=== PATIENT | female | born 1990 | race Caucasian/White ===

== ENCOUNTER 2020-01-23 14:15 | Outpatient (CLI) | payer OTHER, SELFPAY ==
--- NOTE | ~2020-01-23 | US_ITS ---
EXAMINATION: US OB <=14 wk fetus w TV DATE: 01/23/2020 15:17 INDICATION: Spotting and cramping during first trimester . TECHNIQUE: Real-time pelvic ultrasound utilizing both a transvaginal and transabdominal probe was pe rformed. The interpreting radiologist was not present for the study. COMPARISON: CT dated 12/05/2016 FINDINGS: The uterus measures 12.3 x 7.1 x 6.1 cm. There is an intrauterine gestational sac. A yolk sac and fe paz pole are identified. The crown rump length measures 8 mm, which correlates with an estimated gest ational age of 6 weeks and 6 days. heart motion is identified measuring 137-150 beats per minut e (bpm) by M-mode Doppler for mean heart rate of 145 bpm. 2.1 x 1.6 x 1.9 cm heterogeneous iso to sli ghtly hypoechoic region at the left anterior uterine wall. On prior CT there is corresponding region of decreased attenuation which appears contiguous with the endometrium suggesting focal adenomyosis w ith differential including a uterine fibroid. The right ovary measures 6.0 x 5.0 x 4.2 cm. And contains a couple simple anechoic cysts the larger m easuring 4.1 cm in maximal diameter and the smaller measuring 2.0 cm. The left ovary measures 3.1 x 3 .0 x 2.4 cm. Vascular flow identified at both ovaries on color Doppler. There is no free fluid in the pelvis. IMPRESSION: 1. Single living fetus with heart rate of 145 bpm. 2. Gestational age by ultrasound of 6 weeks 6 day(s) +/- 3 day(s) with ultrasound estimated date of delivery ([facility]) of 09/21/2020. 3. 2.1 x 1.6 x 1.9 cm region of heterogeneous isoechoic slightly decreased echogenicity at the left a nterior uterine wall with appearance on earlier CT suggesting this represents adenomyosis with differ ential including less likely a uterine fibroid. 4. A couple simple appearing right ovarian cysts, the larger measuring 4.1 cm. Reviewed, dictated and finalized at location [facility] IMPRESSION: 1. Single living fetus with heart rate of 145 bpm. 2. Gestational age by ultrasound of 6 weeks 6 day(s) +/- 3 day(s) with ultraso und estimated date of delivery ([facility]) of 09/21/2020. 3. 2.1 x 1.6 x 1.9 cm region of heterogeneous isoechoic slightly decreased echo genicity at the left anterior uterine wall with appearance on earlier CT sugges ting this represents adenomyosis with differential including less likely a uter ine fibroid. 4. A couple simple appearing right ovarian cysts, the larger measuring 4.1 cm.
== END 2020-01-23 14:16 | disposition home or self-care (01) ==
PROVIDERS: PCP Internal Medicine; Visit Provider Obstetrics & Gynecology
DX: O36.71X0 Maternal care for viable fetus in abdominal pregnancy, first trimester, not applicable or unspecified (principal); Z3A.01 Less than 8 weeks gestation of pregnancy
CPT/HCPCS: 76801; 76817

== ENCOUNTER 2020-01-27 10:48 | Outpatient (CLI) | payer OTHER, SELFPAY ==
[2020-01-27 11:46] LABS: SARS-CoV-2 Ag Negative (Negative)
== END 2020-01-27 10:49 | disposition home or self-care (01) ==
PROVIDERS: PCP Internal Medicine; Visit Provider Internal Medicine
DX: Z20.828 Contact with and (suspected) exposure to other viral communicable diseases (principal)
CPT/HCPCS: 87426

== ENCOUNTER 2020-02-17 14:50 | Outpatient (CLI) | payer OTHER, SELFPAY ==
[2020-02-17 15:11] LABS: Basophils Absolute Auto 0.03 K/mm3 (0.00-0.10); Basophils Percent Auto 0.3 % (0.0-1.0); Eosinophils Absolute Auto 0.23 K/mm3 (0.02-0.50); Eosinophils Percent Auto 2.2 % (1.0-6.0); Hematocrit 38.1 % (35.0-49.0); Hemoglobin 12.5 g/dL (12.0-15.0); Immature Granulocyte Absolute 0.04 K/mm3 (0.00-0.00); Immature Granulocyte Percent A 0.4 % (0.0-0.0); Lymphocytes Absolute Auto 2.86 K/mm3 (1.10-4.50); Lymphocytes Percent Auto 27.4 % (18.0-42.0); Mean Corpuscular HGB Conc 32.8 g/dL (32.0-36.0); Mean Corpuscular Hemoglobin 30.2 pg (27.0-31.0); Mean Platelet Volume 10.8 fl (9.2-11.8); Monocytes Absolute Auto 0.47 K/mm3 (0.10-0.90); Monocytes Percent Auto 4.5 % (2.0-11.0); Neutrophils Absolute Auto 6.8 K/mm3 (1.7-7.2); Neutrophils Percent Auto 65.2 % (50.0-70.0); Platelet Count Result 226 K/mm3 (150-420); Red Blood Count 4.14 M/mm3 (4.20-5.40); Red Cell Distribution Width 12.7 % (11.6-14.4); White Blood Count 10.5 K/mm3 (4.8-10.8)
[2020-02-17 15:28] LABS: Add Urine Microscopic? NO; Appearance Urine Clear (Clear); Bilirubin Urine Negative (Negative); Blood Urine Negative (Negative); Color Urine Yellow (Yellow); Glucose Urine UA Negative (Negative); Ketones Urine Negative (Negative); Leukocyte Esterase Ur Negative (Negative); Nitrate Urine Negative (Negative); Protein Urine Negative (Negative); Specific Grav Ur >= 1.030 (1.010-1.020); Urobilinogen Urine 0.2 mg/dL (0.2-1.0); pH Urine 5.5 (5.0-8.0)
[2020-02-17 17:00] LABS: HIV 1 P24 AG Negative (Negative); HIV 1/2 AB Negative (Negative)
[2020-02-19 14:06] LABS: RPR Screen Non-Reactive (Non-Reactive)
[2020-02-21 04:39] LABS: Hepatitis B Surface Antigen Nonreactive (Nonreactive); Hepatitis C Signal to Cutoff 0.01 ratio (<1.00); Hepatitis C Virus Antibody Nonreactive (Nonreactive)
[2020-02-21 11:58] LABS: Vitamin D 25 Hydroxy 31 ng/mL (30-100)
[2020-02-22 16:16] LABS: Rubella IgG Antibody 3.51 Index
[2020-02-25 18:26] LABS: Hematocrit 39.7 % (35.0-45.0); Hemoglobin 12.9 g/dL (11.7-15.5); MCH 31.1 pg (27.0-33.0); MCV 95.5 FL (80.0-100.0); RDW 14.8 % (11.0-15.0); Red Blood Cell Count 4.16 Mill/uL (3.80-5.10)
== END 2020-02-17 14:51 | disposition home or self-care (01) ==
LOC: CHSLAB 14:52
PROVIDERS: PCP Internal Medicine; Visit Provider Obstetrics & Gynecology
DX: Z34.90 Encounter for supervision of normal pregnancy, unspecified, unspecified trimester (principal)
CPT/HCPCS: 36415; 81003; 82306; 83021; 84443; 85025; 86592; 86703; 86762; 86787; 86850; 86900; 86901; 87086

== ENCOUNTER 2020-03-04 20:25 | Emergency (ER) | payer OTHER, SELFPAY ==
[2020-03-04 20:34] VITALS: BP 141/83; PULSE 82; RESP 18; TEMP 36.3; O2SAT 100
[2020-03-04 21:34] LABS: Basophils Percent Auto 0.1 % (0.2-1.2); Eosinophils Absolute Auto 0.1 K/mm3 (0-0.3); Eosinophils Percent Auto 1.2 % (0-4.4); Hematocrit 40.5 % (37.0-47.0); Hemoglobin 13.7 g/dL (12.0-15.0); Immature Granulocyte Absolute 0.04 K/mm3 (0.00-0.031); Immature Granulocyte Percent A 0.4 % (0-0.5); Lymphocytes Absolute Auto 3.21 K/mm3 (0.9-3.2); Lymphocytes Percent Auto 28.3 % (18.3-44.2); Mean Corpuscular HGB Conc 33.8 g/dl (32-36); Mean Corpuscular Hemoglobin 31.1 pg (26-34); Mean Corpuscular Volume 91.8 fl (80-100); Mean Platelet Volume 10.5 fl (7.4-10.4); Monocytes Absolute Auto 0.5 K/mm3 (0.1-0.6); Monocytes Percent Auto 4.3 % (2.6-8.5); Neutrophils Absolute Auto 7.5 K/mm3 (1.3-6.7); Neutrophils Percent Auto 65.7 % (45.5-73.1); Platelet Count Result 237 k/mm3 (150-375); Red Blood Count 4.41 M/mm3 (4.2-5.4); Red Cell Distribution Width 12.7 % (11.5-14.5); White Blood Count 11.4 K/mm3 (4.5-10.0)
[2020-03-04 21:38] LABS: Add Urine Microscopic? YES; Appearance Urine Clear (Clear); Bacteria Urine Trace /hpf; Bilirubin Urine Negative (Negative); Blood Urine Negative (Negative); Color Urine Yellow (Yellow); Glucose Urine UA Negative (Negative); Ketones Urine 1+ mg/dL (Negative); Leukocyte Esterase Ur Negative LEU/UL (Negative); Mucus Urine Rare /lpf; Nitrate Urine Negative (Negative); Protein Urine Negative (Negative); RBC Urine 0-2 /hpf (0-2); Specific Grav Ur 1.027 (1.001-1.035); Squamous Epithelial Cell Urine Occasional /hpf (Few); Urobilinogen Urine Negative mg/dL (<2.0); WBC Urine 0-3 /hpf
[2020-03-04 21:46] LABS: Alanine Aminotransferase 13 U/L (4-35); Alkaline Phosphatase 52 U/L (38-126); Anion Gap 6 mmol/L (8-16); Aspartate Amino Transferase 23 U/L (14-36); Bilirubin,Total 0.7 mg/dL (0.2-1.3); Blood Urea Nitrogen 14 mg/dL (7-17); Calcium 9.2 mg/dL (8.4-10.2); Carbon Dioxide 29 mmol/L (22-30); Chloride 98 mmol/L (98-107); Estimated CRCL calculation 153 ml/min; Estimated Glomerular Filt Rate > 60; Glucose 88 mg/dL (65-105); Potassium 3.8 mmol/L (3.4-5.0); Sodium 133 mmol/L (137-145)
[2020-03-04] MEDS: SODIUM CHLORIDE 0.9% IV 1,000 ML 999 ML IV CONT (22:03)
[2020-03-04 22:46] VITALS: BP 119/71; PULSE 67; RESP 18; O2SAT 97
--- NOTE | 2020-03-04 23:44 | ED.GENADULT ---
HPI - General Adult General Chief complaint: Unspecified Stated complaint: Headache, shortness of breath Time Seen by Provider: 03/04/20 20:48 History of Present Illness HPI narrative: Patient is a 29-year-old female who is 12 weeks and 6 days gestation that presents ER with headache. Ongoing for several days. She is. No thunderclap. No numbness or tingling or focal weakness. No slurred speech. Has taken Tylenol with no relief. Reports her blood pressure started becoming elevated at home into the 150s systolic so she contacted her OB who recommended she come here for evaluation. Patient reports her blood pressures typically in the 1 teens. Related Data Allergies Allergy/AdvReac Type Severity Reaction Status Date / Time No Known Allergies Allergy Verified 03/04/20 20:26 Review of Systems Review of Systems: All systems reviewed & are unremarkable except as noted in HPI and below Constitutional: Constitutional: Denies body ache(s), Denies fever(s) and Reports headache(s) ENT: Denies nasal congestion and Denies sore throat Gastrointestinal: Gastrointestinal: Denies abdominal pain, Denies nausea and Denies vomiting Genitourinary: Genitourinary: Denies abnormal vaginal bleeding and Denies vaginal discharge PMFSH Past Medical History Medical History (Updated 03/04/20 @ 23:47 by Favian Hanna MD) Umbilical hernia Vaginal delivery x2 Family History Family History Mother Hypertension Social History Social History Smoking status: Never smoker Alcohol intake: current Exam Narrative: Exam Narrative: GENERAL: Well-appearing, well-nourished, and in no acute distress. HEAD: Normocephalic, atraumatic. CHEST: Clear to auscultation. No respiratory distress. HEART: Regular rate and rhythm. Normal peripheral pulses. ABDOMEN: Soft, nontender, nondistended. EXTREMITIES: Normal range of motion. No edema. SKIN: Warm, dry, no rash. NEURO: Alert and oriented x3. PSYCH: Normal mood and affect. Course Course Emergency Course: Blood work unremarkable. Blood pressure normalized. Follow-up with OB as needed. Vital Signs Vital signs: Vital Signs Temperature 97.4 F L 03/04/20 20:34 Pulse Rate 82 12/30/20 20:34 Respiratory Rate 18 03/04/20 20:34 Blood Pressure 141/83 H 03/04/20 20:34 Pulse Oximetry 100 03/04/20 20:34 Temperature 97.4 F L 03/04/20 20:34 Pulse Rate 67 03/04/20 22:46 Respiratory Rate 18 03/04/20 22:46 Blood Pressure 119/71 03/04/20 22:46 Pulse Oximetry 97 03/04/20 22:46 Medical Decision Making Vital Signs Vital Signs: Vital Signs Temperature 97.4 F L 03/04/20 20:34 Pulse Rate 82 03/04/20 20:34 Respiratory Rate 18 03/04/20 20:34 Blood Pressure 141/83 H 03/04/20 20:34 Pulse Oximetry 100 03/04/20 20:34 Temperature 97.4 F L 03/04/20 20:34 Pulse Rate 67 03/04/20 22:46 Respiratory Rate 18 03/04/20 22:46 Blood Pressure 119/71 03/04/20 22:46 Pulse Oximetry 97 03/04/20 22:46 Lab Data Result diagrams: 03/04/20 21:26 03/04/20 21:26 Labs: Lab Results 03/04/20 03/04/20 03/04/20 Range/Units 21:26 21:26 21:28 WBC 11.4 H (4.5-10.0) K/mm3 RBC 4.41 (4.2-5.4) M/mm3 Hgb 13.7 (12.0-15.0) g/dL Hct 40.5 (37.0-47.0) % MCV 91.8 (80-100) fl MCH 31.1 (26-34) pg MCHC 33.8 (32-36) g/dl RDW 12.7 (11.5-14.5) % Plt Count 237 (150-375) k/mm3 MPV 10.5 H (7.4-10.4) fl Immature Gran % (Auto) 0.4 (0-0.5) % Neut % (Auto) 65.7 (45.5-73.1) % Lymph % (Auto) 28.3 (18.3-44.2) % [place] % (Auto) 4.3 (2.6-8.5) % Eos % (Auto) 1.2 (0-4.4) % Baso % (Auto) 0.1 L (0.2-1.2) % Lymph # (Auto) 3.21 H (0.9-3.2) K/mm3 [place] # (Auto) 0.5 (0.1-0.6) K/mm3 Eos # (Auto) 0.1 (0-0.3) K/mm3 Baso # (Auto) 0.0 (0.0-0.1) K/mm3 Abs Immat
[2020-03-05 00:18] VITALS: BP 110/57; PULSE 74; RESP 18; O2SAT 99
== END 2020-03-05 00:32 | disposition home or self-care (01) ==
PROVIDERS: Emergency Provider Emergency Medicine; PCP Internal Medicine
DX: O26.891 Other specified pregnancy related conditions, first trimester (principal); R51.9 Headache, unspecified; Z3A.12 12 weeks gestation of pregnancy
CPT/HCPCS: 36415; 80048; 80076; 81001; 85025; 96360; 96361; 99283; J7030

== ENCOUNTER 2020-03-05 10:28 | Outpatient (CLI) | payer OTHER, SELFPAY ==
[2020-03-05 11:13] LABS: SARS-CoV-2 Ag Negative (Negative)
== END 2020-03-05 10:29 | disposition home or self-care (01) ==
LOC: CHSLAB 10:31
PROVIDERS: PCP Internal Medicine; Visit Provider Internal Medicine
DX: Z20.828 Contact with and (suspected) exposure to other viral communicable diseases (principal)
CPT/HCPCS: 87426

== ENCOUNTER 2020-03-19 11:09 | Outpatient (CLI) | payer OTHER, SELFPAY ==
--- NOTE | 2020-03-19 12:17 | ECG_ITS ---
Measurements Intervals [place] Rate: 61 P: 66 ME: 116 QRS: 78 QRSD: 90 T: 53 QT: 448 QTc: 452 Interpretive Statements SINUS RHYTHM WITH SHORT ME INTERVAL POSSIBLE LEFT ATRIAL ENLARGEMENT INCOMPLETE RIGHT BUNDLE BRANCH BLOCK BORDERLINE ECG Electronically Signed On 03-19-2020 12:49:44 PLATE FILLER by Hans Garcia D.O.
== END 2020-03-19 11:10 | disposition home or self-care (01) ==
PROVIDERS: PCP Internal Medicine; Visit Provider Obstetrics & Gynecology
DX: R00.0 Tachycardia, unspecified (principal); Z82.49 Family history of ischemic heart disease and other diseases of the circulatory system; I45.10 Unspecified right bundle-branch block
CPT/HCPCS: 93005

== ENCOUNTER 2020-03-23 12:58 | Outpatient (CLI) | payer OTHER, SELFPAY ==
--- NOTE | 2020-03-25 12:43 | WPDHOLTEREM ---
Holter/Event Monitor Holter/Event Monitor Date of procedure: 03/23/20 Procedure Type: 24 hour holter monitor Indications: Palpitations Conclusion: 1. 24 hour holter monitor on 04/02/20. 2. Underlying rhythm is sinus rhythm. HR range 51-143 bpm; average HR 82 bpm. 3. There are 10 premature supraventricular complexes. No supraventricular tachycardia. 4. There are 8 premature ventricular complexes. No ventricular tachycardia. 5. No sinoatrial or atrioventricular blocks. No significant pauses greater than 2 seconds. 6. No symptoms available for correlation.
== END 2020-03-23 12:59 | disposition home or self-care (01) ==
LOC: ANHCARD 12:58
PROVIDERS: PCP Internal Medicine; Visit Provider Obstetrics & Gynecology
DX: R00.0 Tachycardia, unspecified (principal); Z82.49 Family history of ischemic heart disease and other diseases of the circulatory system
CPT/HCPCS: 93225; 93226

== ENCOUNTER 2020-05-28 09:06 | Outpatient (CLI) | payer OTHER, SELFPAY ==
[2020-05-28 10:23] LABS: Basophils Absolute Auto 0.01 K/mm3 (0.00-0.10); Basophils Percent Auto 0.1 % (0.0-1.0); Eosinophils Absolute Auto 0.14 K/mm3 (0.02-0.50); Eosinophils Percent Auto 1.4 % (1.0-6.0); Hematocrit 36.6 % (35.0-49.0); Hemoglobin 12.2 g/dL (12.0-15.0); Immature Granulocyte Absolute 0.05 K/mm3 (0.00-0.00); Immature Granulocyte Percent A 0.5 % (0.0-0.0); Lymphocytes Absolute Auto 1.96 K/mm3 (1.10-4.50); Mean Corpuscular HGB Conc 33.3 g/dL (32.0-36.0); Mean Corpuscular Hemoglobin 31.4 pg (27.0-31.0); Mean Corpuscular Volume 94.1 fL (78.0-102.0); Mean Platelet Volume 10.8 fl (9.2-11.8); Monocytes Absolute Auto 0.44 K/mm3 (0.10-0.90); Monocytes Percent Auto 4.5 % (2.0-11.0); Neutrophils Absolute Auto 7.2 K/mm3 (1.7-7.2); Neutrophils Percent Auto 73.5 % (50.0-70.0); Platelet Count Result 217 K/mm3 (150-420); Red Blood Count 3.89 M/mm3 (4.20-5.40); Red Cell Distribution Width 12.6 % (11.6-14.4); White Blood Count 9.8 K/mm3 (4.8-10.8)
[2020-05-28 10:59] LABS: Glucose 1 Hour PP 50gm Dose 83 mg/dL (70-130)
== END 2020-05-28 09:07 | disposition home or self-care (01) ==
LOC: CHSLAB 09:08
PROVIDERS: PCP Internal Medicine; Visit Provider Obstetrics & Gynecology
DX: Z34.90 Encounter for supervision of normal pregnancy, unspecified, unspecified trimester (principal)
CPT/HCPCS: 36415; 82947; 85025

== ENCOUNTER 2020-06-02 16:31 | Outpatient (CLI) | payer OTHER, SELFPAY ==
[2020-06-02 17:36] LABS: SARS-CoV-2 RNA PCR Negative (Negative)
== END 2020-06-02 16:32 | disposition home or self-care (01) ==
LOC: CHSLAB 16:33
PROVIDERS: PCP Internal Medicine; Visit Provider Internal Medicine
DX: Z20.822 Contact with and (suspected) exposure to COVID-19 (principal)
CPT/HCPCS: C9803; U0003; U0005

== ENCOUNTER 2020-07-20 14:48 | Outpatient (CLI) | payer OTHER, SELFPAY ==
[2020-07-20 15:06] LABS: Basophils Absolute Auto 0.02 K/mm3 (0.00-0.10); Basophils Percent Auto 0.2 % (0.0-1.0); Eosinophils Absolute Auto 0.07 K/mm3 (0.02-0.50); Eosinophils Percent Auto 0.7 % (1.0-6.0); Hematocrit 37.7 % (35.0-49.0); Hemoglobin 12.6 g/dL (12.0-15.0); Immature Granulocyte Absolute 0.06 K/mm3 (0.00-0.00); Immature Granulocyte Percent A 0.6 % (0.0-0.0); Lymphocytes Absolute Auto 1.92 K/mm3 (1.10-4.50); Lymphocytes Percent Auto 19.6 % (18.0-42.0); Mean Corpuscular HGB Conc 33.4 g/dL (32.0-36.0); Mean Corpuscular Hemoglobin 30.5 pg (27.0-31.0); Mean Corpuscular Volume 91.3 fL (78.0-102.0); Mean Platelet Volume 11.1 fl (9.2-11.8); Monocytes Absolute Auto 0.34 K/mm3 (0.10-0.90); Monocytes Percent Auto 3.5 % (2.0-11.0); Neutrophils Absolute Auto 7.4 K/mm3 (1.7-7.2); Neutrophils Percent Auto 75.4 % (50.0-70.0); Platelet Count Result 231 K/mm3 (150-420); Red Blood Count 4.13 M/mm3 (4.20-5.40); Red Cell Distribution Width 12.1 % (11.6-14.4); White Blood Count 9.8 K/mm3 (4.8-10.8)
[2020-07-20 16:10] LABS: HIV 1 P24 AG Negative (Negative); HIV 1/2 AB Negative (Negative)
[2020-07-22 19:49] LABS: RPR Screen Non-Reactive (Non-Reactive)
== END 2020-07-20 14:49 | disposition home or self-care (01) ==
LOC: CHSLAB 14:51
PROVIDERS: PCP Internal Medicine; Visit Provider Obstetrics & Gynecology
DX: Z34.90 Encounter for supervision of normal pregnancy, unspecified, unspecified trimester (principal)
CPT/HCPCS: 36415; 85025; 86592; 86703

== ENCOUNTER 2020-08-31 14:48 | Inpatient (IN) | payer OTHER, SELFPAY ==
[2020-08-31] VITALS (111 sets, daily range): BP systolic 76–143; BP diastolic 50–88; PULSE 53–142; TEMP 36.6; O2SAT 87–100; BMI 32.7
--- NOTE | 2020-08-31 15:52 | LDADM ---
This patient, Cynthia Omalley, was admitted to Labor/Delivery/Recovery 105 on 08/31/20 at 14:48. Plans for labor, pain management and were discussed with patient. Patient/family oriented to hospital policies and general routines including ID bracelet, bed and alarms, visiting hours, pain management, procedures, bathroom and other care routines, personal items, smoking policy, room service/diet and guest tray routines, infant security routines, and visiting hours. Patient/Family are encouraged to report perceived risks to care and to ask questions if they do not understand what they are told or what they should do. See OBIX for further documentation.
[2020-08-31 16:11] LABS: Basophils Percent Auto 0.2 % (0.2-1.2); Eosinophils Absolute Auto 0.1 K/mm3 (0-0.3); Eosinophils Percent Auto 0.9 % (0-4.4); Immature Granulocyte Absolute 0.05 K/mm3 (0.00-0.031); Immature Granulocyte Percent A 0.4 % (0-0.5); Lymphocytes Absolute Auto 2.19 K/mm3 (0.9-3.2); Mean Corpuscular HGB Conc 32.4 g/dl (32-36); Mean Corpuscular Volume 89.4 fl (80-100); Mean Platelet Volume 11.7 fl (7.4-10.4); Monocytes Absolute Auto 0.6 K/mm3 (0.1-0.6); Monocytes Percent Auto 5.3 % (2.6-8.5); Neutrophils Absolute Auto 9.1 K/mm3 (1.3-6.7); Neutrophils Percent Auto 75.2 % (45.5-73.1); Platelet Count Result 196 k/mm3 (150-375); Red Blood Count 4.14 M/mm3 (4.2-5.4); Red Cell Distribution Width 13.3 % (11.5-14.5); White Blood Count 12.2 K/mm3 (4.5-10.0)
--- NOTE | 2020-08-31 17:14 | P.PNAN_ITS ---
Anes - Eval Pre Procedure Procedure: Labor epidural Date/Time: 08/31/20 17:14 Surgeon: Uche Preop Diagnosis: pain during labor Pre Op Diagnosis: Contractions Patient Data Age: 29 Gender: F Height: 1.68 m Weight: 92 kg Last Vital Signs Pulse 84 08/31/20 16:00 BP 118/88 08/31/20 16:00 Allergies Allergy/AdvReac Type Severity Reaction Status Date / Time No Known Allergies Allergy Verified 08/31/20 14:05 Home Medications Medication Instructions Recorded Confirmed Type vitamin no.[id number] 1 cap PO DAILY #90 cap 01/23/20 08/31/20 Rx 28 mg iron-1 mg-200 mg capsule Laboratory Tests 08/31/20 08/31/20 15:57 15:57 WBC 12.2 K/mm3 H K/mm3 (4.5-10.0) RBC 4.14 M/mm3 L M/mm3 (4.2-5.4) Hgb 12.0 g/dL g/dL (12.0-15.0) Hct 37.0 % % (37.0-47.0) MCV 89.4 fl fl (80-100) MCH 29.0 pg pg (26-34) MCHC 32.4 g/dl g/dl (32-36) RDW 13.3 % % (11.5-14.5) Plt Count 196 k/mm3 k/mm3 (150-375) MPV 11.7 fl H fl (7.4-10.4) Immature Gran % (Auto) 0.4 % % (0-0.5) Neut % (Auto) 75.2 % H % (45.5-73.1) Lymph % (Auto) 18.0 % L % (18.3-44.2) [place] % (Auto) 5.3 % % (2.6-8.5) Eos % (Auto) 0.9 % % (0-4.4) Baso % (Auto) 0.2 % % (0.2-1.2) Lymph # (Auto) 2.19 K/mm3 K/mm3 (0.9-3.2) [place] # (Auto) 0.6 K/mm3 K/mm3 (0.1-0.6) Eos # (Auto) 0.1 K/mm3 K/mm3 (0-0.3) Baso # (Auto) 0.0 K/mm3 K/mm3 (0.0-0.1) Abs Immat Gran (auto) 0.05 K/mm3 H K/mm3 (0.00-0.031) Absolute Neuts (auto) 9.1 K/mm3 H K/mm3 (1.3-6.7) Absolute Nucleated RBC 0.0 K/mm3 K/mm3 (0.0-0.012) Nucleated RBC % 0.0 % % (0.0-0.2) RPR Pending Patient hx anesthesia problems: none Family hx anesthesia problems: none PMFSH Past Medical History Medical History Umbilical hernia Vaginal delivery x2 Family History Family History Mother Hypertension Social History Social History Smoking status: Never smoker Alcohol intake: current Substance use: unknown Gender identity (if verbalized by the patient): Female Spiritual care concerns: No Exam Day of Procedure 08/31/20 17:14
[2020-08-31] MEDS: LACTATED RINGERS 1,000 ML 125 ML IV CONT ×2 (17:45→19:44)
[2020-08-31] MEDS: OXYTOCIN 30 UNITS/NS 500 ML 30 UNITS/500 ML BAG IV CONT (22:07)
[2020-09-01] VITALS (16 sets, daily range): BP systolic 98–130; BP diastolic 49–90; PULSE 64–126; RESP 16–18; TEMP 36.3–36.8; O2SAT 99–100
--- NOTE | 2020-09-01 00:23 | PM.IMHP ---
H&P: HPI History of Present Illness Date/Time: 09/01/20 00:23 Patient at 38 4/7 weeks admitted for labor. PNC uncomplicated. Labs reviewed. GBS negative. Chief Complaint: Labor Review of Systems Review of Systems: All systems reviewed & are unremarkable except as noted in HPI and below Constitutional: Constitutional: Reports no additional constitutional complaints and Denies headache(s) Eyes: Eyes: Denies spots in vision ENT: Reports system reviewed and no additional complaints, except as documented and Denies headache(s) Cardiovascular: Cardiovascular: Denies chest pain and Denies dyspnea Respiratory: Respiratory: Denies dyspnea Gastrointestinal: Gastrointestinal: Reports no additional gastrointestinal complaints Genitourinary: Genitourinary: Reports amenorrhea Musculoskeletal: Musculoskeletal: Reports no additional musculoskeletal complaints Integumentary/Breasts: Skin/Breast: Denies breast mass and Denies rash Neurologic: Denies headache(s) Psychiatric: Psychiatric: Reports no additional psychiatric complaints PMFSH Past Medical History Medical History Umbilical hernia Vaginal delivery x2 Family History Family History Mother Hypertension Social History Social History Smoking status: Never smoker Alcohol intake: current Substance use: unknown Gender identity (if verbalized by the patient): Female Spiritual care concerns: No Meds Home Medications and Allergies Home Medications Medication Instructions Recorded Confirmed Type vitamin no.[id number] 1 cap PO DAILY #90 cap 01/23/20 08/31/20 Rx 28 mg iron-1 mg-200 mg capsule Allergies Allergy/AdvReac Type Severity Reaction Status Date / Time No Known Allergies Allergy Verified 08/31/20 14:05 Vital Signs Vital Signs - 24 hr 08/31/20 15:05 08/31/20 15:15 08/31/20 15:30 Temperature Pulse Rate 96 96 97 Blood Pressure 133/86 132/86 118/76 Pulse Oximetry 08/31/20 15:46 08/31/20 16:00 08/31/20 18:01 Temperature Pulse Rate 91 84 107 H Blood Pressure 117/67 118/88 127/76 Pulse Oximetry 08/31/20 18:16 08/31/20 18:31 08/31/20 18:40 Temperature Pulse Rate 68 71 Blood Pressure 111/60 123/63 Pulse Oximetry 100 08/31/20 18:42 08/31/20 18:43 08/31/20 18:45 Temperature Pulse Rate 83 89 99 Blood Pressure 143/71 H 124/75 141/80 H Pulse Oximetry 100 08/31/20 18:48 08/31/20 18:50 08/31/20 18:53 Temperature Pulse Rate 80 90 79 Blood Pressure 111/71 135/83 130/85 Pulse Oximetry 100 99 08/31/20 18:55 08/31/20 18:58 08/31/20 19:00 Temperature Pulse Rate 105 H 100 99 Blood Pressure 129/76 119/74 110/75 Pulse Oximetry 100 08/31/20 19:03 08/31/20 19:05 08/31/20 19:08 Temperature Pulse Rate 88 75 86 Blood Pressure 91/69 L 118/66 128/67 Pulse Oximetry 100 100 08/31/20 19:10 08/31/20 19:13 08/31/20 19:15 Temperature Pulse Rate 99 82 90 Blood Pressure 120/79 128/76 121/69 Pulse Oximetry 100 08/31/20 19:18 08/31/20 19:21 08/31/20 19:23 Temperature Pulse Rate 70 81 85 Blood Pressure 121/69 120/62 120/66 Pulse Oximetry 100 100 08/31/20 19:25 08/31/20 19:28 08/31/20 19:30 Temperature Pulse Rate 70 76 103 H Blood Pressure 122/63 119/62 124/71 Pulse Oximetry 100 08/31/20 19:33 08/31/20 19:36 08/31/20 19:38 Temperature Pulse Rate 83 77 69 Blood Pressure 119/68 113/64 118/68 Pulse Oximetry 100 100 08/31/20 19:40 08/31/20 19:41 08/31/20 19:44 Temperature Pulse Rate 99 Blood Pressure 111/69 Pulse Oximetry 100 100 08/31/20 19:46 08/31/20 19:49 08/31/20 19:54 Temperature Pulse Rate 96 Blood Pressure 120/54 L Pulse Oximetry 98 100 08/31/20 19:57 08/31/20 20:01 08/31/20 20:02 Temperature Pulse Rate [address]
--- NOTE | 2020-09-01 00:26 | PM.OBPRVD ---
OB - Delivery Note Procedure Delivery date: 09/01/20 Procedure: Spontaneous vaginal delivery Intrapartal events: None Induction method: none Delivery augmentation: rupture of membranes and pitocin Delivery monitor: external FHT Route of delivery: Laceration Description: Vaginal - 1st Degree Delivery repair: vicryl (3.0 vicryl) Specimen: No Quantitative Blood Loss (ml): 300 Anesthesia type: Epidural Disposition: floor Narrative: Patient admitted in active labor. Had AROM clear fluid. Had subsequent augmentation of labor after epidural and dilated to complete. Delivered a male . [place] Baby Date of : 09/01/20 Time of : 00:03 Weeks of gestation at delivery: 38 Weight (pounds): 7 Weight (ounces): 2 presentation: vertex position: Left Occiput Anterior Placenta delivery description: Spontaneous cord vessel description: Delayed Cord Clamping score one minute: 9 score five minutes: 9
[2020-09-01] MEDS: OXYTOCIN 30 UNITS/NS 500 ML 30 UNITS/500 ML BAG 125 UNITS IV CONT (00:47)
[2020-09-01] MEDS: BENZOCAINE 20% AER SPR (*SP) 56 GM CAN 1 SPRAY TOPICAL ×2 (02:42→16:56)
[2020-09-01] MEDS: WITCH HAZEL 40 PADS 1 PAD TOPICAL ×2 (02:42→16:56)
[2020-09-01] MEDS: IBUPROFEN 600 MG TABLET PO ×3 (02:43→16:56)
--- NOTE | 2020-09-01 02:56 | PC.NURSE ---
This patient, Cynthia Omalley, was received from Labor and Delivery on 09/01/20 at 0254. Patient/family oriented to unit policies and routines
[2020-09-01] MEDS: DOCUSATE SODIUM 100 MG CAPSULE PO ×2 (08:23→16:56)
[2020-09-01] MEDS: MULTIVIT/MIN/PREN/FOL AC/IRON TABLET 1 TAB PO (08:23)
[2020-09-01 08:26] LABS: Rapid Plasma Reagin Non-Reactive (NonReactive)
--- NOTE | 2020-09-01 08:30 | PC.NURSE ---
Mother called out for assist with feeding due pain with latch. Mother states she had difficulties/discomfort with other two children. Both nipples are reddened from possible shallow latch. Nipple care reviewed of lanolin after feedings, warm compresses and gel pads as needed. Reviewed infant feeding cues, frequencies, duration of feedings, feeding elimination flow sheet, and signs of adequate intake. Demonstrated stimulation techniques to wake for feeding. Assisted with infant to breast. Reviewed positioning/alignment in cross cradle, holding breast in ?U? hold and guided asymmetrical latch on. Several attempts before infant able to latch correctly. nursed eagerly, with steady draws and frequent swallowing noted. Reviewed signs of a correct latch, effective nursing and suck swallow ratio. Infant would slip to shallow latch, mother reports tenderness. Demonstrated how to adjust latch more deeply while feeding. Mother reports she can feel change in latch and has no tenderness. Suggested mother stimulate while feeding to increase stimulate, increase intake and to assist with maintaining deep latch. Instructed mother to call out for RN assistance if she is unable to latch infant for feeding or she has discomfort with nursing. Instructed feeding should be initiated three hours from start of last feeding or if feeding cues are noted before. Mother voiced understanding of information shared.
--- NOTE | 2020-09-01 23:56 | PM.OBPNVD ---
OB - PN: Subj Subjective Date/time seen: 08/31/20 8502 Cat 1 tracing, occasional variables,ctx q 4 min, cervix 4.5/70/-2, AROM clear. Continue expectant management. Consider augmentation if no cervical change. OB - PN: Obj Data Labs CBC & Chem 7: 08/31/20 15:57 Labs: Laboratory Results - last 24 hr 08/31/20 15:57 RPR Non-reactive OB - PN A/P Time Spent With Patient Time: Total time spent is greater than 50% in coordination of care (as documented) at patient's floor/unit and/or counseling patient:
[2020-09-02] MEDS: IBUPROFEN 600 MG TABLET PO ×2 (04:48→12:19)
[2020-09-02 05:24] LABS: Hematocrit 33.8 % (37.0-47.0); Hemoglobin 10.9 g/dL (12.0-15.0)
--- NOTE | 2020-09-02 07:45 | WPDANLDPN2 ---
Anes-Prog Note L&D Date/Time: 09/02/20 07:45 Comfortable throughout: labor and delivery Neuraxial method: epidural Epidural/Spinal procedure site: clean & non-tender Neuro status: Neuro function grossly intact. Cardiovascular status: normal Respiratory status: normal Airway patency: baseline Mental status: baseline Vital Signs: Last Vital Signs Temp 97.5 F L 09/01/20 20:00 Pulse 64 09/01/20 20:00 Resp 16 09/01/20 20:00 BP 112/49 L 09/01/20 20:00 Pulse Ox 99 09/01/20 20:00 Pain score (VAS): 0 Post-procedural complaints: none Patient feedback: Patient satisfied with anesthetic care.
[2020-09-02 08:00] VITALS: BP 139/85; PULSE 64; RESP 16; TEMP 36.6; O2SAT 99
--- NOTE | 2020-09-02 08:00 | PC.NURSE ---
Patient viewed the discharge video Mother & Baby Care, The First Two Weeks . Patient was given the opportunity and encouraged to ask questions. Patient verbalized understanding of information shared and has been given the mother/baby guide for home reference.
[2020-09-02 08:20] VITALS: BP 139/85; PULSE 64; RESP 16; TEMP 36.6; O2SAT 99
--- NOTE | 2020-09-02 08:20 | PC.NURSE ---
Mother is able to independently latch infant with appropriate positioning/alignment. She reports slight nipple discomfort which is improving with deeper latch. Mother believes some tenderness is from freq cluster feeding during the night. Mother has some difficulties with latching to left breast due to nipple is larger and does not have as large of profile as right. Mother has used the latch assist to help draw out nipple. Mother is feeding as required and waking infant to feed if needed. has had at least 8 effective feedings in the past 24 hours, and is currently meeting outcomes for weight, output, jaundice and feeding frequencies. Mother states she feels confident to continue effective at home. Reviewed transition to breast milk, signs of adequate intake, and engorgement/relief. Instructed to call ICP if intake/output less than required. Reviewed regular medications mother is taking. Information provided per Pinky. Reviewed community resources on the [facility] website and in the Mom/Baby guide. Information on outpatient services provided. Mother has no further questions at this time.
[2020-09-02] MEDS: WITCH HAZEL 40 PADS 1 PAD TOPICAL (09:14)
[2020-09-02] MEDS: DOCUSATE SODIUM 100 MG CAPSULE PO (09:14)
[2020-09-02] MEDS: MULTIVIT/MIN/PREN/FOL AC/IRON TABLET 1 TAB PO (09:14)
[2020-09-02] MEDS: BENZOCAINE 20% AER SPR (*SP) 56 GM CAN 1 SPRAY TOPICAL (09:14)
--- NOTE | 2020-09-02 09:43 | P.PNOB_ITS ---
OB - PN: Subj Subjective Date/time seen: 09/02/20 09:43 Patient comments: pain well controlled, tolerating diet and other (Decreasing lochia.) baby status: doing well and nursing well [place] feeding status: exclusively breast feeding OB - PN: Obj Data Labs CBC & Chem 7: 09/02/20 04:47 Labs: Laboratory Results - last 24 hr 09/02/20 04:47 Hgb 10.9 L Hct 33.8 L OB - PN A/P Plan day: 1 Plan: routine care Comments: Patient doing well. She requests discharge today. Discussed discharge precautions. Time Spent With Patient Time: Total time spent is greater than 50% in coordination of care (as docume nted) at patient's floor/unit and/or counseling patient: Review of Systems Review of Systems: All systems reviewed & are unremarkable except as noted in HPI and below Constitutional: Constitutional: Reports no additional constitutional compl aints Cardiovascular: Cardiovascular: Denies dyspnea Respiratory: Respiratory: Denies dyspnea Gastrointestinal: Gastrointestinal: Reports no additional gastrointestinal complaints and Denies abdominal pain Genitourinary: Genitourinary: Reports no additional female genitourinary complaints Exam Const: General: no acute distress, alert and awake Resp: Effort & Inspection: normal respiratory effort GI: GI Palp: No Tenderness to palpation present (GI) Other: Fundus nontender, below umbilicus Psych: Appearance: grossly normal Affect: normal affect Other: Abd: fundus firm below umbilicus, nontender Perineum: healing Ext: nontender
--- NOTE | 2020-09-02 09:47 | PM.OBDSVD ---
DS: Admitting Diagnosis Admitting Diagnosis Admitting Diagnosis: Active labor DS: Discharge Diagnosis Discharge Diagnosis (1) Delivery normal: Code(s): O80 - Encounter for full-term uncomplicated delivery Status: Acute OB - DS: Summary Hospital Course Hospital Course: Patient admitted in active labor. She had a normal vaginal delivery. She did well . Lochia was decreasing and had adequate pain control. She was ambulating well. She requested discharge home on day 1. OB Procedures : Ultrasound OB Procedures Intrapartum: Spontaneous Vag Delivery OB Procedures: : None Peripartum Data Infant Delivery Method: Natural Vaginal Laceration Description: Perineal - 1st Degree complications: none Status at Discharge Functional status at discharge: independent ambulation Time Spent with Patient Time attestation: Total time spent providing and/or coordinating discharge services: Exam Const: General: cooperative Orientation/consciousness: oriented to person, oriented to place and oriented to time HENMT: General nose exam: Normal external nose present Eyes: General: appearance normal, both eyes and all related structures Resp: Effort & Inspection: normal respiratory effort GI: Inspection: normal to inspection : External Female Exam: normal external appearance Skin: General skin exam: normal color Neuro: General: oriented to person, oriented to place and oriented to time Extrem: General: normal to inspection and no calf tenderness Psych: Appearance: grossly normal Mental Status: mental status grossly normal DS: Data Data Completed and Pending Labs on day of discharge: Labs from last 24 hours 09/02/20 04:47 Hgb 10.9 L Hct 33.8 L Discharge Plan Discharge Attending physician on discharge: Erick Ivey Consulting providers: Yelena Franz Discharging Clinician: Erick Ivey Anticipated Discharge Date/Time: 09/02/20 09:44 Patient Disposition: Home, Self-Care Activity: may shower and pelvic rest Diet: regular Patient Instructions: Antibiotic Form Stand Alone Forms: General Discharge Information Follow-up/Referrals: Erick Ivey MD [Physician] - 4 Weeks (Call for appointment) Discharge Medications: Continued VOCATIONAL PSYCHOLOGIST-PNV-DHA 28 mg iron- 1 mg-200 mg capsule 1 cap PO DAILY Qty: 90 RF: 3 Date of admission: 08/31/20 14:48 Primary Care Provider: Diane Jones Admitting Provider: Erick Ivey Attending physician on admission: Erick Ivey Condition: Stable
--- NOTE | 2020-09-02 10:45 | PC.NURSE ---
SElf care and infant care discharge instructions given including follow up visit date and time. No questions or concerns verbalized. Very pleasant and cooperative. FOB at side.
[2020-09-03 11:21] VITALS: BP 139/65; PULSE 69; RESP 20; TEMP 37.1; O2SAT 100
== END 2020-09-02 12:50 | disposition home or self-care (01) | DRG 807 ==
LOC: ANHLDR 14:53 → ANHOB2 09-01 03:18
PROVIDERS: Admitting Provider Obstetrics & Gynecology; PCP Internal Medicine; Visit Provider Obstetrics & Gynecology
DX: O70.0 First degree perineal laceration during delivery (principal); Z37.0 Single live birth; Z3A.38 38 weeks gestation of pregnancy
CPT/HCPCS: 36415; 85014; 85018; 85025; 86592; 86850; 86900; 86901; A9270; J2590; J2795; J7120

== ENCOUNTER 2020-09-04 10:38 | Outpatient (CLI) | payer OTHER, SELFPAY ==
[2020-09-04] VITALS (7 sets, daily range): BP systolic 120–143; BP diastolic 73–79; PULSE 70–91
[2020-09-04 11:36] LABS: Basophils Percent Auto 0.3 % (0.2-1.2); Eosinophils Absolute Auto 0.3 K/mm3 (0-0.3); Eosinophils Percent Auto 2.9 % (0-4.4); Hematocrit 35.8 % (37.0-47.0); Immature Granulocyte Absolute 0.08 K/mm3 (0.00-0.031); Immature Granulocyte Percent A 0.9 % (0-0.5); Lymphocytes Absolute Auto 1.78 K/mm3 (0.9-3.2); Lymphocytes Percent Auto 19.7 % (18.3-44.2); Mean Corpuscular HGB Conc 33.5 g/dl (32-36); Mean Corpuscular Hemoglobin 29.6 pg (26-34); Mean Corpuscular Volume 88.4 fl (80-100); Mean Platelet Volume 10.9 fl (7.4-10.4); Monocytes Absolute Auto 0.5 K/mm3 (0.1-0.6); Monocytes Percent Auto 5.3 % (2.6-8.5); Neutrophils Absolute Auto 6.4 K/mm3 (1.3-6.7); Neutrophils Percent Auto 70.9 % (45.5-73.1); Platelet Count Result 259 k/mm3 (150-375); Red Blood Count 4.05 M/mm3 (4.2-5.4); Red Cell Distribution Width 13.3 % (11.5-14.5)
[2020-09-04 11:46] LABS: Alanine Aminotransferase 47 U/L (4-35); Albumin Level 3.5 g/dL (3.5-5.1); Alkaline Phosphatase 80 U/L (38-126); Anion Gap 4 mmol/L (8-16); Aspartate Amino Transferase 50 U/L (14-36); Bilirubin,Total 0.5 mg/dL (0.2-1.3); Blood Urea Nitrogen 9 mg/dL (7-17); Carbon Dioxide 27 mmol/L (22-30); Chloride 105 mmol/L (98-107); Estimated Glomerular Filt Rate > 60; Glucose 110 mg/dL (65-105); Potassium 3.9 mmol/L (3.4-5.0); Sodium 136 mmol/L (137-145); Uric Acid 3.9 mg/dL (2.5-7.5)
--- NOTE | 2020-09-04 12:01 | PC.NURSE ---
Dr Carmen informed of BP's and lab results. Order for Mortin obtained.
[2020-09-04] MEDS: IBUPROFEN 600 MG TABLET PO (12:22)
--- NOTE | 2020-09-04 13:22 | PC.NURSE ---
Patient states that her headache is better and now rating it a 4, feels comfortable going home.
== END 2020-09-04 13:24 | disposition home or self-care (01) ==
LOC: ANHOBOP 10:46 → ANHOBPP 10:47
PROVIDERS: PCP Internal Medicine; Visit Provider Obstetrics & Gynecology
DX: O13.9 Gestational [pregnancy-induced] hypertension without significant proteinuria, unspecified trimester (principal); Z3A.00 Weeks of gestation of pregnancy not specified
CPT/HCPCS: 36415; 80053; 84550; 85025; 99199; A9270

== ENCOUNTER 2020-09-21 11:27 | Outpatient (RCR) | payer OTHER, SELFPAY ==
--- NOTE | 2020-09-21 12:58 | PC.NURSE ---
IN 904 OUT 954 HISTORY: Pt. delivered at [facility] at 38 5/7 weeks. had no complications after delivery. Mother had no complications after delivery. Infant is now 19 days old. Infant appears to be well cared for. Infant has been seen by ICP as scheduled. Infant last seen by ICP on 09/18/2020. Mother reports: Mother has struggled with deep latch since . does not open wide for deep latch, needing assist from FOB or family. Mother has tenderness with feedings and feels is fussy most of the time and is not content after most feedings. Nipples will look pinched after nursing. Infant has had slow weight gain, and has not returned to weight by 2 weeks, ICP has suggested mother pump and bottle feed 2.5 oz of EBM/formula every other feeding. Before supplementation had 5 wets per day and 1 stool. Mother is pumping 2 oz each session as part of supplement. Mother is using a Spectra pump, with tenderness with pump. Mother reports HX of vasospasms of the nipple. Last child mother took Nifedipine and does not wish to take this time. Mother wishes: Deeper latch with less tenderness, increase in milk supply for less supplementation and pumping. OBSERVATION: Currently at 6 wets per day and 2/3 yellow seedy stools per day. Since supplementation, wets have increased and mother reports blue line is now obvious with wets and she feels the weight has increased. weight: 7#2 Discharge weight: 6#11 Last Weight:6#12 Pre feeding weight: 3340 Post feeding weight: 3369 Tongue is able to move freely past gum ridge, upper lip does not not flange bottom lip flanges easily. Mother has everted nipples with skin intact no redness, blisters or scabbing noted. Slight abrasion to area around nipple Mother puts infant to breast using cross cradle, holding breast in U hold and guided asymmetrical latch. Mother will stimulate with nipple for wide open mouth, infant will open and mother does not bring in quickly. Infant will begin to close mouth and not obtain deep latch. Suggested when mother stimulates and infant opens to quickly pull onto breast to assist with deeper latch. Infant nursed eagerly with bursts of steady draws and frequent swallowing noted followed with long pausing and falling to sleep. was on and off several times during the feeding. Reviewed signs of a correct latch, effective nursing and suck swallow ratio. Advised to stimulate while feeding to keep awake and nursing effectively for increased transfer, stimulation of supply and assist with maintaining deep latch. Infant would slip down to shallow latch, with mother reporting discomfort. Demonstrated how to adjust latch more deeply while feeding. would easily adjust latch and continue to nurse. Mother reports she can feel has a deeper latch. When infant released latch, nipple was elongated and round to end, not with a pinch line as previous. Nipple care reviewed of lanolin and warm compresses as needed. Suggested the use of a nipple shield to keep nursing consistently. Mother reports using a shield with last child. Discussed nipple shield precautions and possible complications. Instructions given on application and cleaning of shield. Patient able to return demonstration on proper application of shield. Discussed the need for regular pumping if continues to nurse with the shield. Patient verbalizes understanding. With shield in place, nursed eagerly with less pausing and a more rhythmical draw, needing less stimulation to continue nursing. Mother felt infant nursed well with shield and is comfortable with use. PLAN: Mother continue to put infant to breast every other feeding using the nipple shield, allowing infant to nurse both breasts. Advised to stimulate to keep infant nursing while at
== END 2020-10-13 09:57 | disposition home or self-care (01) ==
LOC: ANHOBOP 11:27
PROVIDERS: PCP Internal Medicine; Visit Provider Pediatrics
DX: Z39.1 Encounter for care and examination of lactating mother (principal)
CPT/HCPCS: 99212; G0463

== ENCOUNTER 2020-12-31 08:27 | Outpatient (CLI) | payer OTHER, SELFPAY ==
--- NOTE | 2021-01-01 08:53 | WPDHOLTEREM ---
Holter/Event Monitor Holter/Event Monitor Date of procedure: 01/01/21 Holter/Event Procedure: 24 Hr Holter Monitor Indications: Palpitations, Bradycardia Conclusion: 1. 24 hour holter monitor on 12/31/20. 2. Underlying rhythm is sinus rhythm. HR range 41-145 bpm; average HR 76 bpm. 3. There are 6 premature supraventricular complexes. No supraventricular tachycardia. 4. There are 112 premature ventricular complexes. No ventricular tachycardia. 5. No sinoatrial or atrioventricular blocks. No significant pauses greater than 2 seconds. 6. Patient reports symptoms of palpitations which demonstrate sinus rhythm, HR range 55-132 bpm and 1 PVC.
== END 2020-12-31 08:28 | disposition home or self-care (01) ==
PROVIDERS: PCP Internal Medicine; Visit Provider Internal Medicine
DX: R00.2 Palpitations (principal)
CPT/HCPCS: 93225; 93226

== ENCOUNTER 2021-06-26 07:09 | Outpatient (CLI) | payer OTHER, SELFPAY ==
[2021-06-26 07:31] LABS: Basophils Absolute Auto 0.02 K/mm3 (0.00-0.10); Basophils Percent Auto 0.3 % (0.0-1.0); Eosinophils Absolute Auto 0.22 K/mm3 (0.02-0.50); Eosinophils Percent Auto 3.6 % (1.0-6.0); Hematocrit 44.4 % (35.0-49.0); Hemoglobin 14.5 g/dL (12.0-15.0); Immature Granulocyte Absolute 0.02 K/mm3 (0.00-0.00); Immature Granulocyte Percent A 0.3 % (0.0-0.0); Lymphocytes Absolute Auto 2.32 K/mm3 (1.10-4.50); Lymphocytes Percent Auto 37.7 % (18.0-42.0); Mean Corpuscular HGB Conc 32.7 g/dL (32.0-36.0); Mean Corpuscular Volume 91.7 fL (78.0-102.0); Mean Platelet Volume 10.7 fl (9.2-11.8); Monocytes Absolute Auto 0.34 K/mm3 (0.10-0.90); Monocytes Percent Auto 5.5 % (2.0-11.0); Neutrophils Absolute Auto 3.2 K/mm3 (1.7-7.2); Neutrophils Percent Auto 52.6 % (50.0-70.0); Platelet Count Result 261 K/mm3 (150-420); Red Blood Count 4.84 M/mm3 (4.20-5.40); Red Cell Distribution Width 12.6 % (11.6-14.4); White Blood Count 6.2 K/mm3 (4.8-10.8)
[2021-06-26 08:27] LABS: Erythrocyte Sedimentation Rate 19 mm/hr (0-15)
[2021-06-26 09:00] LABS: Alanine Aminotransferase 21 U/L (14-59); Albumin Level 3.8 g/dL (3.4-5.0); Alkaline Phosphatase 67 U/L (46-116); Anion Gap 5 mmol/L (8-16); Aspartate Amino Transferase 15 U/L (15-37); Bilirubin,Total 1.1 mg/dL (0.00-1.00); Blood Urea Nitrogen 13 mg/dL (7-18); Carbon Dioxide 29 mmol/L (21-32); Chloride 103 mmol/L (98-108); Estimated Glomerular Filt Rate > 60; Ferritin 50 ng/mL (8-252); Free T3 3.05 pg/mL (2.18-3.98); Free T4 Free Thyroxine 1.02 ng/dL (0.76-1.46); Glucose 90 mg/dL (70-99); Iron 87 ug/dL (50-170); Osmolality Calculated 284 mOsm/kg (285-295); Percent Iron Saturation 28 % (12-57); Potassium 4.3 mmol/L (3.5-5.1); Sodium 137 mmol/L (136-145); Thyroid Stimulating Hormone 1.65 uIU/mL (0.36-3.74); Total Protein 7.4 g/dL (6.4-8.2)
[2021-06-29 18:18] LABS: Vitamin D 25 Hydroxy 46 ng/mL (30-100)
[2021-06-30 11:31] LABS: Testosterone Total 28 ng/dL (2-45)
[2021-07-01 17:39] LABS: CRP < 0.2 mg/dL (0.0-0.9); Creatine Kinase 87 U/L (26-192)
[2021-07-02 15:26] LABS: Estrogen 286.6 pg/mL
== END 2021-06-26 07:10 | disposition home or self-care (01) ==
PROVIDERS: PCP Internal Medicine; Visit Provider Internal Medicine
DX: R53.83 Other fatigue (principal); L68.0 Hirsutism; R07.9 Chest pain, unspecified; M54.2 Cervicalgia; E55.9 Vitamin D deficiency, unspecified
CPT/HCPCS: 36415; 80053; 82306; 82550; 82672; 82728; 83498; 83540; 83550; 84403; 84439; 84443; 84481; 85025; 85652; 86140

== ENCOUNTER 2021-07-01 14:04 | Outpatient (CLI) | payer OTHER, SELFPAY ==
--- NOTE | ~2021-07-01 | XR_ITS ---
EXAMINATION:[id number]_[id number] DATE: 07/01/2021 14:33 INDICATION: Neck pain TECHNIQUE: AP, lateral, lateral swimmers and odontoid views of the cervical spine are provided. COMPARISON: None FINDINGS: Bone alignment is normal. There is reversal of the normal cervical lordosis. The odontoid i s intact. No fracture is identified. There is moderate loss of intervertebral disc space height at C6 -7. Anterior and posterior endplate osteophytes are noted at C6-7. The vertebral body heights are nikki ntained. Prevertebral soft tissues are normal. IMPRESSION: 1. Moderate cervical spondylosis at C6-7. Reviewed, dictated and finalized at location F.
== END 2021-07-01 14:05 | disposition home or self-care (01) ==
LOC: CHSIMG 14:05
PROVIDERS: PCP Internal Medicine; Visit Provider Nurse Practitioner Family
DX: M54.2 Cervicalgia (principal)
CPT/HCPCS: 72040

== ENCOUNTER 2021-07-12 12:31 | Outpatient (CLI) | payer OTHER, SELFPAY ==
--- NOTE | 2021-07-12 01:00 | ECHO_ITS ---
Patient Info Name: Cynthia Omalley Age: 30 years : 1990 Gender: Female Ht: 65 in Wt: 168 lbs BSA: 1.89 m2 HR: 73 bpm BP: 128 / 75 mmHg Heart Rhythm: Sinus Rhythm Technical Quality: Fair Exam Date: 07/12/2021 12:31 PM Exam Location: [facility] Patient Status: Outpatient Admit Date: 07/12/2021 Staff Ordering Physician: MaeveCintia NP Fire Protection Engineering Technician: Liss Van RDCS Attending Provider: ClariceCintia NP Referring Physician: Maeve POSADA; Exam Type: CA echo doppler color flow Study Info Indications - palpitations Complete two-dimensional, color flow and Doppler transthoracic echocardiogram is performed. Summary 1. Complete two-dimensional, color flow and Doppler transthoracic echocardiogram is performed. 2. Left ventricular chamber dimension is normal. 3. Left ventricular systolic function is normal, estimated at 60-65%. 4. The left ventricular diastolic function is normal. 5. E/e' 6 is not elevated. 6. No pulmonary hypertension, estimated pulmonary arterial systolic pressure is 25 mmHg. 7. There is mild pulmonic regurgitation. Left Ventricle E/e' 6 is not elevated. Left ventricular chamber dimension is normal. Left ventricular systolic function is normal, estimated at 60-65%. The left ventricular diastolic function is normal. Right Ventricle Right ventricular systolic function is normal and with normal TAPSE 3.2 cm. Right ventricular chamber dimension is normal. Left Atria Left atrial chamber dimension is normal. Right Atria Right atrial chamber dimension is normal. Aortic Valve The aortic valve is trileaflet. There is no aortic valve stenosis. There is no aortic valve regurgitation. Pulmonic Valve There is mild pulmonic regurgitation. Mitral Valve There is no mitral valve stenosis. There is no mitral valve regurgitation. Tricuspid Valve There is no tricuspid valve regurgitation. No pulmonary hypertension, estimated pulmonary arterial systolic pressure is 25 mmHg. Pericardium/Pleural There is no pericardial effusion. Inferior Vena Cava Normal inferior vena cava with >50% collapse upon inspiration consistent with normal right atrial pressure, 5 mmHg. Aorta The aortic root size at the sinus of Valsalva is normal. Left Ventricular Outflow Tract Name Value Normal LVOT 2D LVOT Diameter 2.0 cm LVOT Doppler LVOT Peak Velocity 125 cm/s LVOT Peak Gradient 6 mmHg LVOT Mean Gradient 3 mmHg LVOT VTI 26 cm LVOT VTI/AV VTI Ratio 0.7 LVOT Stroke Volume 79 ml Pulmonic Valve Name Value Normal RVOT Doppler RVOT Peak Gradient 2 mmHg PV Doppler
== END 2021-07-12 12:32 | disposition home or self-care (01) ==
LOC: CHSIMG 12:32
PROVIDERS: PCP Internal Medicine; Visit Provider Nurse Practitioner Family
DX: R00.2 Palpitations (principal)
CPT/HCPCS: 93306

== ENCOUNTER 2021-07-12 13:44 | Outpatient (RCR) | payer OTHER, SELFPAY ==
--- NOTE | 2021-07-12 14:33 | PTOPEVAL ---
Thank you for referring Cynthia Omalley to [facility].? The patient is scheduled to be seen for therapy? _2___x/week for 8 visits. Please review, sign, date and return this plan of care JOSE L. I agree with and certify that the following plan of care is medically necessary. Referring Physician Date Admitting Provider: Attending Provider: Cintia Mcfarlane, SAUSAGE SMOKER Referring Provider: *PT Outpatient Evaluation Start: 07/12/21 13:59 Freq: Status: Active Protocol: Document 07/12/21 13:59 DEBORAH (Rec: 07/12/21 14:33 DEBORAH [email or web address]) Therapy Assessment Status Assessment Status Assessment Status Evaluation Outpatient Past Medical History Neurological History Hx Neurological Disorders No Significant History Cardiovascular History Hx Cardiac Disorders No Significant History Respiratory History Hx Respiratory Disorders No Significant History Gastrointestinal History Hx Hernia Yes: umbilical hernia repair Genitourinary History Hx Other Genitourinary Disorders Yes: relaxed bladder Musculoskeletal History Hx Fractures Yes: left arm x 2 Hematological History Hx Hematological Disorders No Significant History Endocrine History Hx Endocrine Disorders No Significant History HEENT History Hx Dental Problems Yes: wisdom teeth extraction Integumentary History Hx Skin Disorders No Significant History Reproductive History Hx Reproductive Disorders No Significant History Psychosocial History Hx Anxiety Yes Hx Depression Yes Pain History History of Any Previous or Ongoing No Significant History Instance of Pain Anesthesia History Hx Anesthesia Reactions No Significant History Evaluation Information Problem Diagnosis neck pain Onset 06/27/21 Subjective Information Pt. reports she noticed arm Query Text:As Reported By Patient/ numbness in both arms around 4 Family . She reports that she also developed pain in the left side of the neck and down into the left shoulder blade. She reports that she has improved since the , but still has pain with looking down or looking up. She report that sleeping on her left side will also increase her pain. She reports that she does have a 10 month old and holding the child will increase her pain. Prior Level of Function Comments Additional Prior Jordi
== END 2021-07-26 16:16 | disposition home or self-care (01) ==
LOC: CHSPT 13:44
PROVIDERS: PCP Nurse Practitioner Family; Visit Provider Nurse Practitioner Family
DX: M54.2 Cervicalgia (principal)
CPT/HCPCS: 97012; 97014; 97110; 97140; 97161; G0283

== ENCOUNTER 2022-10-07 09:50 | Outpatient (CLI) | payer OTHER, SELFPAY ==
[2022-10-13 07:33] LABS: LH 3.4 mIU/mL (***); Progesterone 5.8 ng/mL (***)
[2022-10-14] LABS: Testosterone Free 1.8 pg/mL (0.1-6.4); Testosterone Total 16 ng/dL (2-45)
== END 2022-10-07 09:51 | disposition home or self-care (01) ==
LOC: CHSLAB 09:52
PROVIDERS: PCP Internal Medicine; Visit Provider Obstetrics & Gynecology
DX: N92.6 Irregular menstruation, unspecified (principal)
CPT/HCPCS: 36415; 83001; 83002; 84144; 84402; 84403; 84443

== ENCOUNTER 2023-02-22 13:24 | Outpatient (CLI) | payer OTHER, SELFPAY ==
--- NOTE | ~2023-02-22 | US_ITS ---
EXAMINATION: US pelvic complete w TV DATE: 02/22/2023 13:57 INDICATION: Irregular menstrual cycle TECHNIQUE: Multiple transabdominal and endovaginal sonographic images of the pelvis were obtained. COMPARISON: None. FINDINGS: The uterus measures 9.9 x 7.2 x 4.5 cm. The endometrial complex measures 13 mm. There is a questionable intramural fibroid of the uterine fundus measuring 3.6 cm. The right ovary measures 3.0 x 3.1 x 2.6 cm. The left ovary measures 3.4 x 3.0 x 1.8 cm. There is normal vascular flow in the ovar ies. There is no free fluid in the pelvis. IMPRESSION: 1. No sonographic correlate for the patient's symptoms. Reviewed, dictated and finalized at location B. ER CENTER DIRECTOR
== END 2023-02-22 13:25 | disposition home or self-care (01) ==
LOC: CHSIMG 13:27
PROVIDERS: PCP Internal Medicine; Visit Provider Nurse Practitioner Family
DX: N92.6 Irregular menstruation, unspecified (principal)
CPT/HCPCS: 76830; 76856

== ENCOUNTER 2023-04-12 16:21 | Outpatient (CLI) | payer OTHER, SELFPAY ==
[2023-04-12 17:15] LABS: Ferritin 86 ng/mL (8-252); Iron 61 ug/dL (50-170)
[2023-04-15 15:03] LABS: Lyme Disease Ab (IgM), Blot Negative (Negative); Lyme Disease Ab(IgG), Blot Negative (Negative)
[2023-04-15 16:32] LABS: Zinc 200 mcg/dL (60-130)
== END 2023-04-12 16:22 | disposition home or self-care (01) ==
LOC: CHSLAB 16:23
PROVIDERS: PCP Internal Medicine; Visit Provider Internal Medicine
DX: R53.83 Other fatigue (principal); M25.50 Pain in unspecified joint; L67.8 Other hair color and hair shaft abnormalities
CPT/HCPCS: 36415; 82728; 83540; 84630; 86617

== ENCOUNTER 2023-05-12 10:52 | Outpatient (CLI) | payer OTHER, SELFPAY ==
--- NOTE | ~2023-05-12 | XR_ITS ---
Clinical Indication: Cough PA and lateral views of the chest: Comparison: 12/24/2018 Findings: The lungs are clear, without evidence of focal consolidation or pleural effusion. Cardiome diastinal silhouette is within normal limits. Bones and soft tissues are unremarkable. Impression: Normal chest. Reviewed, dictated and finalized at [facility]. SPRING STRIP INSPECTOR Impression: Normal chest.
[2023-05-12 11:16] LABS: Basophils Absolute Auto 0.02 K/mm3 (0.00-0.10); Basophils Percent Auto 0.4 % (0.0-1.0); Eosinophils Absolute Auto 0.02 K/mm3 (0.02-0.50); Eosinophils Percent Auto 0.4 % (1.0-6.0); Hematocrit 41.5 % (35.0-49.0); Immature Granulocyte Absolute 0.01 K/mm3 (0.00-0.00); Immature Granulocyte Percent A 0.2 % (0.0-0.0); Lymphocytes Absolute Auto 1.64 K/mm3 (1.10-4.50); Mean Corpuscular HGB Conc 33.7 g/dL (32.0-36.0); Mean Corpuscular Hemoglobin 30.9 pg (27.0-31.0); Mean Corpuscular Volume 91.6 fL (78.0-102.0); Mean Platelet Volume 10.1 fl (9.2-11.8); Monocytes Absolute Auto 0.46 K/mm3 (0.10-0.90); Platelet Count Result 150 K/mm3 (150-420); Red Blood Count 4.53 M/mm3 (4.20-5.40); Red Cell Distribution Width 11.4 % (11.6-14.4); White Blood Count 5.1 K/mm3 (4.8-10.8)
[2023-05-12 11:33] LABS: Alanine Aminotransferase 21 U/L (14-59); Albumin Level 3.2 g/dL (3.4-5.0); Alkaline Phosphatase 44 U/L (46-116); Anion Gap 7 mmol/L (8-16); Aspartate Amino Transferase 15 U/L (15-37); Bilirubin,Total 0.4 mg/dL (0.00-1.00); Blood Urea Nitrogen 10 mg/dL (7-18); Calcium 8.5 mg/dL (8.5-10.1); Carbon Dioxide 30 mmol/L (21-32); Chloride 103 mmol/L (98-108); Estimated Glomerular Filt Rate > 60; Glucose 106 mg/dL (70-99); Osmolality Calculated 289 mOsm/kg (285-295); Potassium 3.7 mmol/L (3.5-5.1); Sodium 140 mmol/L (136-145); Total Protein 7.2 g/dL (6.4-8.2)
[2023-05-12 11:41] LABS: Strep Group A RT-PCR NOT DETECTED (Negative)
[2023-05-12 11:49] LABS: SARS-CoV-2 RNA PCR Positive (Negative)
[2023-05-12 11:51] LABS: Influenza A QL RT-PCR Negative (Negative); Influenza B QL RT-PCR Positive (Negative); RSV RNA, RT-PCR Negative (Negative)
== END 2023-05-12 10:53 | disposition home or self-care (01) ==
PROVIDERS: PCP Internal Medicine; Visit Provider Internal Medicine
DX: U07.1 COVID-19 (principal); R05.9 Cough, unspecified; R50.9 Fever, unspecified
CPT/HCPCS: 36415; 71046; 80053; 85025; 87637; 87651

== ENCOUNTER 2023-05-20 09:26 | Outpatient (CLI) | payer OTHER, SELFPAY ==
--- NOTE | ~2023-05-20 | MR_ITS ---
EXAMINATION: MR cervical spine wo con DATE: 05/20/2023 11:21 INDICATION: Cervicalgia TECHNIQUE: Magnetic resonance imaging (MRI) of the cervical spine was performed without intravenous c ontrast. Sequences included sagittal T2-weighted FSE, sagittal T2-weighted FS FSE, sagittal T1-weight ed FSE, axial MERGE and axial T2-weighted FSE. COMPARISON: CT dated 08/13/2011 FINDINGS: Straightening of the normal cervical lordosis. No spondylolisthesis or facet subluxation. Vertebral body heights are normal. Bone marrow signal intensity is normal. Mild disc desiccation throughout th e cervical spine. Mild disc height loss at C5-C6 and mild to moderate disc height loss at C6-C7. Ther e are annular fissures the posterior disc extrusions with disc material extending a few millimeter ce phalad and caudal to the level of the endplates at C4-C5, C5-C6 and C6-C7. Cord signal intensity is n ormal. Visualized cervical soft tissues are unremarkable. The following disc levels are specifically discussed: C2-C3: Disc is mildly bulging. There is no uncovertebral joint osteoarthritis. There is no facet join t osteoarthritis. There is no neural foraminal stenosis. There is no central canal stenosis. C3-C4: Disc is mildly bulging. There is no uncovertebral joint osteoarthritis. There is no facet join t osteoarthritis. There is no neural foraminal stenosis. There is no central canal stenosis. C4-C5: Disc is mildly bulging with superimposed left paracentral annular fissure and disc extrusion w hich mildly indents the left ventral surface of the cord. There is no uncovertebral joint osteoarthri tis. There is no facet joint osteoarthritis. There is mild neural foraminal stenosis. There is no kingston tral canal stenosis. C5-C6: Disc is mildly bulging with superimposed annular fissure and small central disc extrusion whic h flattens the ventral surface of the cord. There is no uncovertebral joint osteoarthritis. There is no facet joint osteoarthritis. There is mild neural foraminal stenosis. There is no central canal manuelito nosis. C6-C7: Disc is bulging with annular fissure and small central disc extrusion. There is mild bilateral uncovertebral joint osteoarthritis. There is no facet joint osteoarthritis. There is mild bilateral neural foraminal stenosis. There is mild central canal stenosis. C7-T1: The disc does not extend beyond the endplate margin. There is no uncovertebral joint osteoarth ritis. There is no facet joint osteoarthritis. There is no neural foraminal stenosis. There is no kingston tral canal stenosis. IMPRESSION: 1. Mild to moderate lower cervical spondylosis. Reviewed, dictated and finalized at location A.
== END 2023-05-20 09:27 | disposition home or self-care (01) ==
LOC: CHSIMG 09:27
PROVIDERS: PCP Internal Medicine; Visit Provider Internal Medicine
DX: M54.2 Cervicalgia (principal); M43.02 Spondylolysis, cervical region
CPT/HCPCS: 72141

== ENCOUNTER 2023-06-07 13:44 | Outpatient (RCR) | payer OTHER, SELFPAY ==
--- NOTE | 2023-06-07 15:08 | OPREHPOC ---
Outpatient Therapy Plan of Care This is a Multidisciplinary Plan of Care that may contain components documented by all disciplines (PT, OT, and ST.) PT Problem 1 PT Problem #1 Knowledge Deficit PT Goal 1 Goal The patient will demonstrate independence in a home exercise program. Target Visit 6 PT Problem 2 PT Problem #2 Pain PT Goal 1 Goal The patient will report no greater than 3/10 cervical pain with daily activities. Target Visit 12 PT Problem 3 PT Problem #3 Impaired Range of Motion PT Goal 1 Goal The patient will demonstrate at least 70 degrees of cervical rotation to improve driving ability. Target Visit 12 PT Problem 4 PT Problem #4 Impaired Functional Mobil PT Goal 1 Goal The patient will demonstrate 25% or less self perceived disability per the Neck Index questionnaire. Target Visit 12 PT Problem 5 PT Problem #5 Impaired Strength PT Goal 1 Goal The patient will demonstrate at least 4/5 left tricep strength for performance of daily activities. Target Visit 12
--- NOTE | 2023-06-07 15:08 | PTOPEVAL1 ---
Assessment and note entered by Antoinette Mccall, PT Evaluation Information Assessment Status Evaluation Diagnosis Cervical Radiculopathy Onset 05/29/23 Subjective Information Rickey Omalley reports she originally started having neck pain in June 2021 for unknown reasons. She underwent PT at that time and it helped reduce her symptoms. 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 She notes her pain began to return about 6 months ago and now she is noting pain all the time . She has pain on the left side of her neck and it will radiate down her arm to the elbow. She also feels weakness in the left arm and decreased vegetable trimmer strength. She has difficulty holding her youngest son in her left arm for a long period and she feels like her fingers get shaky. She notes occasional numbness at the base of her left thumb as well. Pain in her neck is increased when she tilts her head to the right, using the left arm a lot, and when she sits/drives for a long period. She went to her doctor and a MRI was ordered. The MRI showed bulging discs at all levels with a herniated disc at C6-7. She was referred to try PT again. Reported Pain Level Pain Score 5: Self Report Assessment PT Clinical Summary Rickey Omalley presents with cervical pain with radiation to the left upper arm, weakness in the left UE, and occasional numbness in the left hand. 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 She objectively demonstrates poor posture, tenderness at the left levator scapulae and upper trapezius, decreased left tricep strength, decreased and painful cervical AROM, and decreased functional abilities. She will benefit from skilled PT to address these limitations. Plan of Care Interventions Electrical Stimulation,Hot Pack/Cold Pack,Manual Therapy,Mechanical Traction,Neuro Re-education, Patient/Caregiver Educati,Therapeutic Activities, Therapeutic Exercise PT Services Indicated Yes Treatment Frequency and 3 times a week for 12 visits Duration
--- NOTE | 2023-07-04 09:35 | OPREHPOC ---
Outpatient Therapy Plan of Care This is a Multidisciplinary Plan of Care that may contain components documented by all disciplines (PT, OT, and ST.) PT Problem 1 PT Problem #1 Knowledge Deficit PT Goal 1 Goal The patient will demonstrate independence in a home exercise program. Target Visit 6 Progress Met PT Problem 2 PT Problem #2 Pain PT Goal 1 Goal The patient will report no greater than 3/10 cervical pain with daily activities. Target Visit 12 Progress Met PT Problem 3 PT Problem #3 Impaired Range of Motion PT Goal 1 Goal The patient will demonstrate at least 70 degrees of cervical rotation to improve driving ability. Target Visit 12 Progress Not Met PT Problem 4 PT Problem #4 Impaired Functional Mobil PT Goal 1 Goal The patient will demonstrate 25% or less self perceived disability per the Neck Index questionnaire. Target Visit 12 Progress Not Met PT Problem 5 PT Problem #5 Impaired Strength PT Goal 1 Goal The patient will demonstrate at least 4/5 left tricep strength for performance of daily activities. Target Visit 12 Progress Met PT Goal 2 Goal The patient will demonstrate 4+/5 or better L triceps mm strength Target Visit 12
--- NOTE | 2023-07-04 09:35 | PTOPPROGNS ---
Assessment and note entered by JT File, PT Evaluation Information Assessment Status Progress Diagnosis Cervical Radiculopathy Onset 05/29/23 Subjective Information patient reports in general things are better. however, she still has flare ups of symptoms from time to time. she reports she has not found any activities that bring on her pain more consistently. she reports she has seen improvements in overall decreased pain/symptoms, ability to wash her hair without having to rest, and no longer has frequent pain down the shoulder to the elbow along the back of the arm. however, she does report some new symptoms of achyness in the L arm, and numbness to the L small finger. Assessment PT Clinical Summary mrs. aceves presents to skilled PT today for her 10th skilled therapy visit for cervical radiculopathy. overall, she has made progress towards goals and reports less symptoms. however, she continued to have L triceps weakness, L little finger numbness/tingling, and L arm achiness. she has met/made progress towards all goals for skilled PT. continued skilled PT is indicated to address her remining objective/functional deficits and goals for skilled PT. she may need the evaluation of a nerve conduction test to rule out cubital tunnel on the L side. Plan of Care Interventions Electrical Stimulation,Hot Pack/Cold Pack,Manual Therapy,Mechanical Traction,Neuro Re-education, Patient/Caregiver Educati,Therapeutic Activities, Therapeutic Exercise PT Services Indicated Yes Treatment Frequency and continue per initial POC Duration These treatments will address the objective and functional deficits as defined above. The patient will be advanced safely and appropriately in order for the patient to progress towards his/her prior level of function. Additional exercises will be introduced and as well as a comprehensive home exercise program upon discharge, if needed, ?to ensure carryover of functional gains achieved in the clinic. This treatment plan has been reviewed and agreement upon by the patient.
--- NOTE | 2023-07-07 11:24 | OPREHPOC ---
Outpatient Therapy Plan of Care This is a Multidisciplinary Plan of Care that may contain components documented by all disciplines (PT, OT, and ST.) PT Problem 1 PT Problem #1 Knowledge Deficit PT Goal 1 Goal The patient will demonstrate independence in a home exercise program. Target Visit 6 Progress Met PT Problem 2 PT Problem #2 Pain PT Goal 1 Goal The patient will report no greater than 3/10 cervical pain with daily activities. Target Visit 12 Progress Partially Met PT Problem 3 PT Problem #3 Impaired Range of Motion PT Goal 1 Goal The patient will demonstrate at least 70 degrees of cervical rotation to improve driving ability. Target Visit 12 Progress Partially Met PT Problem 4 PT Problem #4 Impaired Functional Mobil PT Goal 1 Goal The patient will demonstrate 25% or less self perceived disability per the Neck Index questionnaire. Target Visit 12 Progress Not Met PT Problem 5 PT Problem #5 Impaired Strength PT Goal 1 Goal The patient will demonstrate at least 4/5 left tricep strength for performance of daily activities. Target Visit 12 Progress Met PT Goal 2 Goal The patient will demonstrate 4+/5 or better L triceps mm strength The patient will demonstrate 5/5 L triceps mm strength The patient will demonstrate 75lbs L hand manufacturing coordinator strength Target Visit 12 Progress Partially Met
--- NOTE | 2023-07-07 11:24 | PTOPREEVAL ---
Assessment and note entered by JT File, PT Evaluation Information Assessment Status Re-evaluation Diagnosis Cervical Radiculopathy Onset 05/29/23 Subjective Information patient reports she feels good today. however, she reports it does still depend on the day. she reports she still has flare ups from time to time, and does not know what flares it up. she reports it is better overall. she reports she ahs improved ability to wash her hair, no pain yesterday at work, and less symptoms down the arm. she reports she still does wake up in the middle of the night, and does have symptoms to the small finger of the L hand. Reported Pain Level Pain Score 0: Self Report Pain Score 1: Self Report Assessment PT Clinical Summary mrs. aceves presents to skilled PT for her 12th skilled therapy visit. she displays increased L triceps strength today since her last progress note. however, she still displays weakness of the L tricpes and the L channel sales manager strength. she also displays deficits in R cervical rotation and has pain in the L arm at times. progress towards goals has been made, and patients goals have been progressed to further meet her functional goals. she would benefit from continued skilled PT services to improve her remaining objective/ functional deficits and progress towards achievement of all her functional and personal. Plan of Care Interventions Electrical Stimulation,Hot Pack/Cold Pack,Manual Therapy,Mechanical Traction,Neuro Re-education, Patient/Caregiver Educati,Therapeutic Activities, Therapeutic Exercise PT Services Indicated Yes Treatment Frequency and continue skilled PT 2x weekly for 6 more visits Duration These treatments will address the objective and functional deficits as defined above. The patient will be advanced safely and appropriately in order for the patient to progress towards his/her prior level of function. Additional exercises will be introduced and as well as a comprehensive home exercise program upon discharge, if needed, ?to ensure carryover of functional gains achieved in the clinic. This treatment plan has been reviewed and agreement upon by the patient.
--- NOTE | 2023-07-28 07:46 | OPREHPOC ---
Outpatient Therapy Plan of Care This is a Multidisciplinary Plan of Care that may contain components documented by all disciplines (PT, OT, and ST.) PT Problem 1 PT Problem #1 Knowledge Deficit PT Goal 1 Goal The patient will demonstrate independence in a home exercise program. Target Visit 6 Progress Met PT Problem 2 PT Problem #2 Pain PT Goal 1 Goal The patient will report no greater than 3/10 cervical pain with daily activities. Target Visit 12 Progress Met PT Problem 3 PT Problem #3 Impaired Range of Motion PT Goal 1 Goal The patient will demonstrate at least 70 degrees of cervical rotation to improve driving ability. Target Visit 12 Progress Met PT Problem 4 PT Problem #4 Impaired Functional Mobil PT Goal 1 Goal The patient will demonstrate 25% or less self perceived disability per the Neck Index questionnaire. Target Visit 12 Progress Met PT Problem 5 PT Problem #5 Impaired Strength PT Goal 1 Goal The patient will demonstrate at least 4/5 left tricep strength for performance of daily activities. Target Visit 12 Progress Met PT Goal 2 Goal The patient will demonstrate 4+/5 or better L triceps mm strength. met The patient will demonstrate 5/5 L triceps mm strength. 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 not met Target Visit 12 Progress Met
--- NOTE | 2023-07-28 07:47 | PTOPDC ---
Assessment and note entered by JT File, PT Evaluation Information Assessment Status Discharge Diagnosis Cervical Radiculopathy Onset 05/29/23 Subjective Information patient reports she feels good today. she reports the arm is feeling pretty good. she reports she is ready to make today her last therapy visit. she reports she was fine after not doing mechanical traction last visit. Reported Pain Level Pain Score 0: Self Report Assessment PT Clinical Summary mrs. aceves presents to skilled PT for her 18th skilled PT visit. 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 she reports feeling ready to DC therapy and continue with HEP independent at home. she continues to display improvement of strength, and no symptoms/pain. she was educated to contact PT if symptoms return or with any future needs. Plan of Care PT Services Indicated Yes
== END 2023-07-28 08:11 | disposition home or self-care (01) ==
LOC: CHSPT 13:44
PROVIDERS: Visit Provider Internal Medicine
DX: M54.12 Radiculopathy, cervical region (principal)
CPT/HCPCS: 97012; 97014; 97110; 97161; G0283

== ENCOUNTER 2025-02-07 08:17 | Outpatient (CLI) | payer OTHER, SELFPAY | END 2025-02-07 08:18 | disposition home or self-care (01) | PROVIDERS: PCP Internal Medicine; Visit Provider Obstetrics & Gynecology | DX: N64.3 Galactorrhea not associated with childbirth (principal) | CPT/HCPCS: 84146 ==